=== PATIENT | female | born 1970 | race Caucasian/White ===

== ENCOUNTER 2021-10-15 04:24 | Emergency (ER) | payer OTHER ==
[~2021-10-15] VITALS: Ht 170.2 cm; Wt 119.0 kg
--- OUTSIDE RECORDS SUMMARY | 2021-10-15 04:28 | XMS ---
PreManage Notification: JONE PASCUAL Security Hot Room Attendant Events No recent Security Events currently on file [facility] There are no care providers on record at this time. Gordon has no Care Guidelines for this patient. Gamal VISIT COUNT (12 MO.) 1 VALERIA Soriano TOTAL 1 NOTE: Visits indicate total known visits. ED/C VISIT TRACKING (12 MO.) 10/15/2021 04:25 VALERIA Ceron OR TYPE: Emergency COMPLAINT: - LEFT KNEE INJ INPATIENT VISIT TRACKING (12 MO.) No inpatient visits to display in this time frame [email or web address]
[2021-10-15] MEDS ORDERED: ALPRAZOLAM0.5 MG PO (04:44)
[2021-10-15] MEDS ORDERED: LEXAPRO20 MG PO (04:45)
== END 2021-10-15 05:30 | disposition home or self-care (01) ==
LOC: ED 04:24
DX: S83.92XA Sprain of unspecified site of left knee, initial encounter (principal); W10.9XXA Fall (on) (from) unspecified stairs and steps, initial encounter; K21.9 Gastro-esophageal reflux disease without esophagitis; Z79.899 Other long term (current) drug therapy
CPT/HCPCS: 73560; 99283-25